=== PATIENT | female | born 1995 | race Caucasian/White ===

== ENCOUNTER 2016-03-13 08:44 | Emergency (ER) | payer OTHER ==
[2016-03-13 08:57] VITALS: BP 131/60
--- NOTE | 2016-03-13 10:37 | UC ---
Complaint Female HPI - HPI Summary HPI Summary: pt p/w burning with urination, increased frequency, suprapubic pressure x 4 days. pt has been using azo to manage pain symptoms. no other aggravating or alleviating factors. last uti in 7th grade. also has itchy, irritated vulva for a couple of days. std screen recently but has had unprotected sex since and would like to be tested again. - History Of Current Complaint Chief Complaint: [facility]CGU Stated Complaint: URINARY Time Seen by Provider: 03/13/16 08:46 Hx Obtained From: Patient Hx Last Menstrual Period: 03/11/16 ?: No Onset/Duration: Gradual Onset, Lasting Days - 4, Still Present, Worse Since - today Timing: Constant Severity Initially: Mild Severity Currently: Moderate Pain Intensity: 0 Pain Scale Used: 0-10 Numeric Character: Dull, Burning Aggravating Factor(s): Urination Alleviating Factor(s): Nothing Associated Signs And Symptoms: Positive: Vaginal Bleeding/Discharge - currently menstruating. Negative: Fever, Back Pain, Vaginal Discharge, Nausea, Vomiting( # Of Episodes =), Genital Swelling, Genital Blisters - Allergies/Home Medications Allergies/Adverse Reactions: Allergies Allergy/AdvReac Type Severity Reaction Status Date / Time No Known Allergies Allergy Verified 03/13/16 08:57 Home Medications: Home Medications Homeopathic Products [Azo Yeast Plus] 1 tab PO BID PRN 03/13/16 [History Confirmed 03/13/16] Levonorgestrel & Eth Estradiol [Orsythia] 1 tab PO QPM 03/13/16 [History Confirmed 03/13/16] Phenazopyridine HCl [Azo Urinary Pain Relief] 95 mg PO BID PRN 03/13/16 [ History Confirmed 03/13/16] Vaginal Moisturizer [Vagisil Feminine Moisturi] 1 lot VA BID PRN 03/13/16 [ History Confirmed 03/13/16] PMH/Surg Hx/FS Hx/Imm Hx Previously Healthy: Yes - Surgical History Surgical History: None - Family History Known Family History: Negative: Cardiac Disease, Hypertension, Diabetes - Social History Occupation: Student Alcohol Use: Weekly Substance Use Type: None Smoking Status (MU): Never Smoked Tobacco - Immunization History Most Recent Influenza Vaccination: not this season Review of Systems Constitutional: Negative Skin: Negative Eyes: Negative ENT: Negative Respiratory: Negative Cardiovascular: Negative Gastrointestinal: Other - suprapubic pressure Genitourinary: Dysuria, Frequency Motor: Negative Neurovascular: Negative Musculoskeletal: Negative Neurological: Negative Psychological: Negative All Other Systems Reviewed And Are Negative: Yes Physical Exam Triage Information Reviewed: Yes Appearance: Well-Appearing, No Pain Distress, Well-Nourished Vital Signs: Initial Vital Signs Temp 97.5 F 03/13/16 08:47 Pulse 64 03/13/16 08:47 Resp 18 03/13/16 08:47 BP 131/60 03/13/16 08:47 Vital Signs Reviewed: Yes Eyes: Positive: Conjunctiva Clear. Negative: Discharge ENT: Positive: Hearing grossly normal, Muffled/hoarse voice Neck exam: Normal Neck: Positive: Supple Respiratory: Positive: Lungs clear, Normal breath sounds, No respiratory distress, No accessory muscle use Cardiovascular: Positive: RRR, No Murmur Abdomen Description: Positive: Soft. Negative: Nontender - suprapubic only, CVA Tenderness (R), CVA Tenderness (L), Distended, Guarding, McBurney's Point Tenderness Bowel Sounds: Positive: Present Musculoskeletal Exam: Normal Neurological: Positive: Alert, Muscle Tone Normal Psychological: Positive: Age Appropriate Behavior Skin Exam: Normal Complaint Female Dx - Differential Dx/Diagnosis Differential Diagnosis/HQI/PQRI: Urinary Tract Infection Provider Diagnoses: uti Discharge - Discharge Plan Condition: Stable Disposition: HOME Prescriptions: Sulfamethox/Trimethoprim DS* [Bactrim DS 800/160 TAB*] 1 tab PO BID #6 tab Patient Education Materials: Urinary Tract Infection in Women (ED), Hematuria ( ED) Referrals: Non Staff,Doctor [Primary Care Provider] - Additional Instructions: REMEMBER THAT AZO ONLY ELIMINATES PAIN, IT DOES NOT TREAT THE INFECTION. ANTIBIOTIC THERAPY: You have been given an antibiotic prescription. It's important that you take all the medication, unless instructed otherwise by your physician. Failure to complete the entire course can result in relapse of your condition. Common side effects of antibiotics include nausea, intestinal cramping, or diarrhea. Women may develop vaginal yeast infections, and babies can get yeast (thrush) in the mouth following the use of antibiotics. Contact your physician if you develop significant side effects from this medication. Allergy to this antibiotic can result in hives, wheezing, faintness, or itching. If symptoms of allergy occur, stop the medication and call the doctor. ANY TIME YOU TAKE AN ANTIBIOTIC, IT IS IMPORTANT TO REPLENISH THE BODY'S BALANCE OF "GOOD" BACTERIA BY EATING HIGH QUALITY CULTURED FOOD SUCH YOGURT, SAURKRAUT OR ELANA CHI AND/OR TAKING A PROBIOTIC SUPPLEMENT.
== END 2016-03-13 10:01 | disposition home or self-care (01) ==
LOC: UCCORT 08:44
DX: N39.0 Urinary tract infection, site not specified (principal)
CPT/HCPCS: 81025; 87077; 87086; 87186; 87480; 87491; 87510; 87591; 87661; 99212; G0463

== ENCOUNTER 2016-03-17 07:22 | Emergency (ER) | payer OTHER ==
[2016-03-17 07:41] VITALS: BP 117/52
--- NOTE | 2016-03-17 07:56 | UC ---
Throat Pain/Nasal Zeeshan HPI - HPI Summary HPI Summary: SORE THROAT AND COUGH X 2 DAYS , + BODY ACHES , CHILL, NO FEVER, PT. IS NO BACTRIM DS FOR UTI AND FLAGYL FOR BV + NAUSEA , + VOMITING X 1 THIS AM - History of Current Complaint Chief Complaint: UCRespiratory Stated Complaint: SORE THROAT/ACHY/VOMITING Time Seen by Provider: 03/17/16 07:34 Hx Obtained From: Patient Hx Last Menstrual Period: 03/10/16 Onset/Duration: Gradual Onset, Lasting Days - 2, Still Present Severity: Severe Cough: Nonproductive Associated Signs & Symptoms: Negative: Wheezing, Sinus Discomfort, Nasal Discharge, Fever - Allergies/Home Medications Allergies/Adverse Reactions: Allergies Allergy/AdvReac Type Severity Reaction Status Date / Time No Known Allergies Allergy Verified 03/17/16 07:36 PMH/Surg Hx/FS Hx/Imm Hx Endocrine History Of: Denies: Diabetes - Surgical History Surgical History: None - Family History Known Family History: Negative: Cardiac Disease, Hypertension, Diabetes - Social History Alcohol Use: Weekly Substance Use Type: None Smoking Status (MU): Never Smoked Tobacco - Immunization History Most Recent Influenza Vaccination: not this season Review of Systems Constitutional: Chills, Fatigue Skin: Negative Eyes: Negative ENT: Sore Throat Respiratory: Cough Cardiovascular: Negative Gastrointestinal: Negative Genitourinary: Dysuria, Frequency, Urgency Motor: Negative Neurovascular: Negative Musculoskeletal: Arthralgia, Myalgia All Other Systems Reviewed And Are Negative: Yes Physical Exam Triage Information Reviewed: Yes Appearance: Well-Appearing, Well-Nourished, Pain Distress Vital Signs: Initial Vital Signs Temp 99 F 03/17/16 07:28 Pulse 105 03/17/16 07:28 Resp 18 03/17/16 07:28 BP 117/52 03/17/16 07:28 Pulse Ox 100 03/17/16 07:28 Vital Signs Reviewed: Yes Eyes: Positive: Conjunctiva Clear ENT: Positive: Normal ENT inspection, Hearing grossly normal, Pharynx normal Neck exam: Normal Neck: Positive: Supple, Nontender, No Lymphadenopathy Respiratory: Positive: Chest non-tender, Lungs clear, Normal breath sounds Cardiovascular: Positive: No Murmur, Pulses Normal, Tachycardia Abdominal Exam: Normal Abdomen Description: Positive: Soft. Negative: Distended, Guarding Bowel Sounds: Positive: Present Musculoskeletal: Positive: Strength Intact, ROM Intact Skin Exam: Normal Throat Pain/Nasal Course/Dx - Differential Dx/Diagnosis Provider Diagnoses: influenza Discharge - Discharge Plan Condition: Stable Disposition: HOME Prescriptions: Oseltamivir Phosphate [Tamiflu] 75 mg PO BID #10 cap Patient Education Materials: Influenza (ED) Referrals: Non Staff,Doctor [Primary Care Provider] - 5 Days
== END 2016-03-17 08:30 | disposition home or self-care (01) ==
LOC: UCCORT 07:22
DX: J11.1 Influenza due to unidentified influenza virus with other respiratory manifestations (principal)
CPT/HCPCS: 87502; 99212; G0463

== ENCOUNTER 2016-03-30 10:57 | Emergency (ER) | payer OTHER ==
[2016-03-30 11:07] VITALS: BP 109/73
[2016-03-30] MEDS ORDERED: Albuterol HFA INHALER* 8 gm MDI INH ONE (11:24)
--- NOTE | 2016-03-30 11:31 | UC ---
Respiratory Complaint HPI - HPI Summary HPI Summary: 20 yo female who was dxed with flu on 03/17 Initially felt better then started up with a cough again no recent fever no sob or cp no n/v/d - History of Current Complaint Chief Complaint: UCGeneralIllness Stated Complaint: COUGH,CONGESTION Time Seen by Provider: 03/30/16 11:16 Hx Obtained From: Patient Hx Last Menstrual Period: 03/10/16 Onset/Duration: Gradual Onset, Lasting Weeks Timing: Constant Severity Initially: Mild Severity Currently: Moderate Pain Intensity: 4 Pain Scale Used: 0-10 Numeric Character: Cough: Nonproductive Aggravating Factors: Nothing Alleviating Factors: Nothing Associated Signs And Symptoms: Positive: Edema - Allergies/Home Medications Allergies/Adverse Reactions: Allergies Allergy/AdvReac Type Severity Reaction Status Date / Time No Known Allergies Allergy Verified 03/30/16 11:07 Home Medications: Home Medications [id number] W/ APAP [Delsym Cough + Cold D... [id number] mg/10Ml] 1 liq PO DAILY 03/30/16 [History Confirmed 03/30/16] PMH/Surg Hx/FS Hx/Imm Hx Previously Healthy: Yes Endocrine History Of: Denies: Diabetes - Surgical History Surgical History: None - Family History Known Family History: Negative: Cardiac Disease, Hypertension, Diabetes - Social History Alcohol Use: Weekly Substance Use Type: None Smoking Status (MU): Never Smoked Tobacco - Immunization History Most Recent Influenza Vaccination: not this season Review of Systems Constitutional: Negative Skin: Negative Eyes: Negative ENT: Negative Respiratory: Cough Cardiovascular: Negative Gastrointestinal: Negative Genitourinary: Negative Motor: Negative Neurovascular: Negative Musculoskeletal: Negative Neurological: Negative Psychological: Negative All Other Systems Reviewed And Are Negative: Yes Physical Exam Triage Information Reviewed: Yes Appearance: Well-Appearing, No Pain Distress, Well-Nourished Vital Signs: Initial Vital Signs Temp 98 F 03/30/16 11:02 Pulse 77 03/30/16 11:02 Resp 14 03/30/16 11:02 BP 109/73 03/30/16 11:02 Pulse Ox 100 03/30/16 11:02 Eye Exam: Normal Eyes: Positive: Conjunctiva Clear ENT: Positive: Normal ENT inspection, Hearing grossly normal, Pharynx normal, TMs normal. Negative: Nasal congestion, Nasal drainage, Tonsillar swelling, Tonsillar exudate, Trismus, Muffled/hoarse voice Dental: Negative: Gross Decay/Caries @, Dental Fracture @, Abscess @ Neck: Positive: Supple, Nontender, No Lymphadenopathy Respiratory: Positive: No respiratory distress, No accessory muscle use, Wheezing - with forcded expiration Cardiovascular: Positive: RRR, No Murmur, Pulses Normal, Brisk Capillary Refill. Negative: Tachycardia, Bradycardia Musculoskeletal: Positive: ROM Intact, No Edema Neurological Exam: Normal Neurological: Positive: Alert Psychological Exam: Normal Skin Exam: Normal UC Diagnostic Evaluation - Laboratory O2 Sat by Pulse Oximetry: 100 - normal/not hypoxic Respiratory Course/Dx - Differential Dx/Diagnosis Provider Diagnoses: acute bronchitis Discharge - Discharge Plan Condition: Stable Disposition: HOME Prescriptions: Azithromycin TAB* [Zithromax TAB*] 250 mg PO DAILY #6 tab Benzonatate CAP* [Tessalon CAP*] 100 - 200 mg PO TID PRN #28 cap PRN Reason: Cough Prednisone [Deltasone] 40 mg PO DAILY #10 tab Patient Education Materials: Acute Bronchitis (ED) Referrals: Non Staff,Doctor [Primary Care Provider] - Additional Instructions: recheck in 4-5 days if not better use inhaler as directed
== END 2016-03-30 11:48 | disposition home or self-care (01) ==
LOC: UCCORT 10:57
DX: J20.9 Acute bronchitis, unspecified (principal)
CPT/HCPCS: 99212; A9270-GY; G0463